=== PATIENT | female | born 1950 | race Hispanic/Latino ===

== ENCOUNTER 2016-10-01 19:51 | Emergency (ER) | payer MEDICARE, BC ==
[2016-10-01 20:04] VITALS: BP 142/94; PULSE 76; RESP 18; TEMP 98; O2SAT 98
[2016-10-01] MEDS ORDERED: TDAP Vaccine 0.5 mL Syr IM ONE (20:09)
[2016-10-01] MEDS ORDERED: Lidocaine 2% Inj (20ml) SC ONE (20:11)
[2016-10-01] MEDS ORDERED: Lidocaine 2% Inj (20ml) ONE (20:43)
--- NOTE | 2016-10-01 20:46 | ED PDOC ---
HPI: Trauma/Fall - HPI Time Seen by Provider: 10/01/16 20:00 Chief Complaint (Nursing): Trauma Chief Complaint (Provider): Trauma History Per: Patient History/Exam Limitations: no limitations Onset/Duration Of Symptoms: Hrs Location Of Injury: Anterior: Head Additional Complaint(s): Elizabeth Mae is a 66 year old female that presents to the ED after tripping and striking her head against the cement earlier today. As a result of falling, patient ripped her shirt and sustained an abrasion to her upper left arm, as well as a laceration to the bridge of her nose and an abrasion to the right frontal region of her head. She denies LOC or any pain with movement of her left arm. Patient does not take any blood thinners. Past Medical History Reviewed: Historical Data, Nursing Documentation, Vital Signs Vital Signs: Last Vital Signs Temp 98 F 10/01/16 20:02 Pulse 76 10/01/16 20:02 Resp 18 10/01/16 20:02 BP 142/94 H 10/01/16 20:02 Pulse Ox 98 10/01/16 20:02 - Family History Family History: States: Unknown Family Hx - Home Medications Home Medications: Ambulatory Orders Medication Instructions Recorded Bacitracin Ointment [Bacitracin] 0.5 gm TOP BID #1 tube 10/01/16 Cephalexin [Keflex] 500 mg PO QID #20 capsule 10/01/16 - Allergies Allergies/Adverse Reactions: Allergies Allergy/AdvReac Type Severity Reaction Status Date / Time No Known Allergies Allergy Verified 10/01/16 20:02 Review of Systems Constitutional: Negative for: Other (denies LOC) ENT: Positive for: Other (laceration above bridge of nose, abrasion to right frontal aspect of forehead) Musculoskeletal: Negative for: Arm Pain (denies arm pain) Skin: Positive for: Other (abrasion to upper left arm) Physical Exam - Reviewed Nursing Documentation Reviewed: Yes Vital Signs Reviewed: Yes - Physical Exam Appears: Positive for: Non-toxic, No Acute Distress Head Exam: Positive for: NORMOCEPHALIC. Negative for: ATRAUMATIC (2.5 cm region of swelling noted to right frontal region of head with mild abrasion) Skin: Positive for: Normal Color, Warm Eye Exam: Positive for: Normal appearance, EOMI, PERRL. Negative for: Periorbital swelling ENT: Positive for: Other (Patient is able to open and close jaw without difficulty. No loose teeth. Negative septal hematoma.). Negative for: Normal ENT Inspection (2 cm U-shaped laceration noted on nasal bridge, skin evulsed. ) Neck: Positive for: Normal (No c-spine tenderness), Painless ROM Cardiovascular/Chest: Positive for: Regular Rate, Rhythm. Negative for: Murmur Respiratory: Positive for: Normal Breath Sounds. Negative for: Wheezing Extremity: Positive for: Normal ROM, Other (mild abrasion noted to lateral aspect of left arm) Neurologic/Psych: Positive for: Alert, Oriented. Negative for: Motor/Sensory Deficits - ECG O2 Sat by Pulse Oximetry: 98 (RA) Pulse Ox Interpretation: Normal - Progress ED Course And Treament: Head CT: IMPRESSION: Right frontal scalp hematoma, no acute intracranial abnormality, no fracture` Thank you for allowing us to participate in the care of your patient. Dictated and Authenticated by: Morena Bose MD CT facial bone: IMPRESSION: Right frontal scalp swelling and hematoma, no underlying fracture; laceration right nasal soft tissues, no underlying fracture Additional findings as described above. Thank you for allowing us to participate in the care of your patient. Dictated and Authenticated by: Morena Bose MD tdap 0.5 ml Keflex 500 mg x 1 dose Medical Decision Making Medical Decision Making: Impression: Lacerations/Abrasions as a result of fall Plan: * CT Head w/o contrast * CT Orbits * Keflex 500 mg PO * TDAP * Reevaluation Scribe Attestation: Documented by Petty Guillen, acting as a scribe for Jozef Wu PA-C. Provider Scribe Attestation: All medical record entries made by the Scribe were at my direction and personally dictated by me. I have reviewed the chart and agree that the record accurately reflects my personal performance of the history, physical exam, medical decision making, and the department course for this patient. I have also personally directed, reviewed, and agree with the discharge instructions and disposition. Disposition - Clinical Impression Clinical Impression: Facial laceration, Hematoma - Patient ED Disposition Is Patient to be Admitted: No - Disposition Referrals: Murali Douglas MD [Staff Provider] - Disposition: Routine/Home Disposition Time: 21:51 Condition: FAIR Additional Instructions: F/U WITH PMD/ED/URGENT CARE/PLASTICS FOR REMOVAL OF SUTURE IN 5 DAYS. Prescriptions: Bacitracin Ointment [Bacitracin] 0.5 gm TOP BID #1 tube Cephalexin [Keflex] 500 mg PO QID #20 capsule Instructions: Head Injury (ED), Laceration (ED), Hematoma (ED) Forms: [facility] ([place]) [employer] ([place]) Procedure: Wound Repair - Time Performed Time Performed: 21:47 - Time Out Time Out: Site verified - Consent Obtained Consent obtained: Verbal - Performed by Performed by: Mid-level Provider - Indications Indication(s):: Laceration - Location Location:: Nose Shape:: Curvilinear Dimensions Length cm: 1.25cm Depth:: Epidermis - Anesthetic Technique Anesthetic Technique: Local Local/Regional Anesthetic:: Lidocaine 2% - Debris Debris:: None - Irrigated Irrigated with ml of normal saline: 100ml - Complexity Complexity:: Simple (one layer) - Wound repair method Sutures:: # (six), Size (7-0), Type (monofilament polybutester), Technique ( interrupted) - Patient tolerated procedure Patient Tolerated Procedure:: Well
--- NOTE | 2016-10-01 21:14 | CT ---
EXAM: CT Head Without Intravenous Contrast CLINICAL HISTORY: 66 years old, female; Injury or trauma; Fall; Initial encounter; Blunt trauma (contusions or hematomas); Without loss of consciousness; Injury date: 10-01-2016; Injury details: Patient states: She tripped and fell forward; Additional info: Facial injury TECHNIQUE: Axial computed tomography images of the head/brain without intravenous contrast. This CT exam was performed using one or more of the following dose reduction techniques: automated exposure control, adjustment of the mA and/or kV according to patient size, and/or use of iterative reconstruction technique. Coronal and sagittal reformatted images were created and reviewed. EXAM DATE/TIME: 10/01/2016 8:10 PM COMPARISON: There are no prior studies for comparison. FINDINGS: Brain: There is mild prominence of sulci, gyri and ventricles. There is no midline shift. There are no intra-axial or extra-axial mass lesions or areas of hemorrhage. There are no abnormal fluid collections. Reynoso-white differentiation is maintained. Ventricles: See above. Bones: Cranial vault is intact. Soft tissues: There is right frontal scalp swelling and scalp hematoma. Sinuses: There is no acute sinusitis. There is small retention cyst/polyps in the left maxillary sinus Ears and mastoids: Middle ears and mastoids are unremarkable Orbits: Orbital contents are unremarkable. IMPRESSION: Right frontal scalp hematoma, no acute intracranial abnormality, no fracture`
--- NOTE | 2016-10-01 21:25 | CT ---
EXAM: CT Maxillofacial Without Intravenous Contrast CLINICAL HISTORY: 66 years old, female; Injury or trauma; Fall; Initial encounter; Blunt trauma (contusions or hematomas) and laceration; Forehead and nose; Without residual foreign body; Injury date: 10-01-2016; Injury details: Tripped and fell forward; Additional info: Facial injury TECHNIQUE: Axial computed tomography images of the face without intravenous contrast. This CT exam was performed using one or more of the following dose reduction techniques: automated exposure control, adjustment of the mA and/or kV according to patient size, and/or use of iterative reconstruction technique. Coronal and sagittal reformatted images were created and reviewed. EXAM DATE/TIME: 10/01/2016 8:10 PM COMPARISON: There are no prior studies for comparison. FINDINGS: Bones/joints: There is laceration in the right nasal soft tissues. There is no nasal bone fracture. Bony nasal septum is intact. Maxillary spine is intact. There is right frontal soft tissue swelling and hematoma, there is no underlying fracture. There are degenerative changes in the upper cervical spine. Soft tissues: There is right frontal scalp swelling and hematoma. There is laceration in the soft tissues of the nose on the right. Orbits: Globes are intact. There are postsurgical changes involving the lenses. Retrobulbar structures are unremarkable. Sinuses: There is no sinusitis. There is a retention cyst/polyp in the left maxillary antrum. Mastoid air cells: Middle ears and mastoids: Middle ears and mastoids are well-aerated. Dental: Streak artifact from dental fillings degrades image quality. Brain:No focal abnormalities are seen in visualized portion of the brain. Deep soft tissues: There no facial masses IMPRESSION: Right frontal scalp swelling and hematoma, no underlying fracture; laceration right nasal soft tissues, no underlying fracture Additional findings as described above.
== END 2016-10-01 22:02 | disposition home or self-care (01) ==
LOC: H.ER 19:51
DX: S01.81XA Laceration without foreign body of other part of head, initial encounter (principal); S00.03XA Contusion of scalp, initial encounter; W01.0XXA Fall on same level from slipping, tripping and stumbling without subsequent striking against object, initial encounter; Y92.89 Other specified places as the place of occurrence of the external cause